=== PATIENT | female | born 1940 | race Caucasian/White ===

== ENCOUNTER → 2017-08-23 09:08 | Outpatient (CLI) | payer MEDICARE, SELFPAY | PROVIDERS: Family Provider Family Medicine; PCP Family Medicine; Visit Provider Family Medicine | DX: E11.9 Type 2 diabetes mellitus without complications (principal) | CPT/HCPCS: 36415; 83036 ==

== ENCOUNTER → 2017-08-29 12:30 | Outpatient (CLI) | payer MEDICARE, SELFPAY ==
--- NOTE | 2017-08-29 12:47 | HPBD_ITS ---
STUDY: DUAL ENERGY X-RAY ABSORPTIOMETRY / DXA REASON FOR EXAM: Female, 76 years old. 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 COMPARISON: None. FINDINGS: Lumbar Spine (L1-L4): g/cm2 (1.178) / T-score (0.1) / Z-score (1.9) Findings are suggestive of normal bone density . Left Femoral Neck: g/cm2 (0.692) / T-score (-2.5) / Z-score (-0.4) consistent with osteoporosis. Right Femoral Neck: g/cm2 (0.672) / T-score (-2.6) / Z-score (-0.6) consistent with osteoporosis. HPBD/Dexa Bone Density Study (HP) IMPRESSION: The patient is considered osteoporotic as outlined below according to World [employer] Organization (WHO) criteria with increased fracture risk. Reference Information: The T-score is the number of standard deviations above or below the standard which is normal for young adults at their peak bone mineral density. The World Health Organization (WHO) interprets the T-scores as follows: Above -1 Normal bone density Between -1 and -2.5 Osteopenia Equal to / or below -2.5 Osteoporosis As a practical clinical guideline, osteopenia may be graded as follows: Mild -1 through -1.5 Moderate -1.6 through -2.0 Severe -2.1 through -2.4 The Z-score is the number of standard deviations above or below age-matched controls. A Z-score of less than -1.5 would be considered abnormal. References: 1. NIH Osteoporosis and Related Bone Diseases http://www.osteo.org 2. International Society for Clinical Densitometry http://www.iscd.org 3. National Osteoporosis Foundation http://www.nof.org Electronically Signed: Nohemy Martinez MD at 10:36 EDT Tel , Service support ,
== END ==
PROVIDERS: Family Provider Family Medicine; PCP Family Medicine; Visit Provider Family Medicine
DX: M81.0 Age-related osteoporosis without current pathological fracture (principal); I48.91 Unspecified atrial fibrillation; I48.92 Unspecified atrial flutter
CPT/HCPCS: 77080

== ENCOUNTER → 2017-09-26 14:03 | Outpatient (CLI) | payer MEDICARE, SELFPAY ==
--- NOTE | 2017-09-26 14:05 | ECHOD_ITS ---
Reason For Study: AFIB/FLUTTER Procedure This was a 2D Doppler, Color Flow transthoracic echocardiogram. The study was technically difficult. Exam performed in department. Left Ventricle Normal LV size. Sigmoid septum. Left ventricular systolic function is normal. The estimated ejection fraction is 60 %. Unable to assess diastolic dysfunction. No regional wall motion abnormalities noted. Right Ventricle Normal RV size. Normal systolic function. Atria The left atrium is severely enlarged. Normal right atrium. No doppler evidence for ASD. Mitral Valve There is moderate mitral annular calcification. Extension of the mitral annular calcification onto the posterior mitral valve leaflet. Mild (1+) mitral valve insufficiency. Tricuspid Valve Normal tricuspid valve. Moderate (2+) tricuspid valve insufficiency. Right ventricular systolic pressure estimated to be 49 mmHg. Aortic Valve Trisinus/trileaflet aortic valve. Mild focal aortic valve calcification. Pulmonic Valve The pulmonic valve is not well visualized. Trivial pulmonic valve insufficiency. Great Vessels Normal sized aortic root. Pericardium/Pleural No pericardial effusion. MMode/2D Measurements & Calculations LVIDd: 3.4 cm IVSd: 1.5 cm Ao root diam: 2.8 cm LVIDs: 2.4 cm LVPWd: 1.2 cm LA dimension: 5.0 cm RVDd: 3.3 cm FS: 29.3 % LAV(MOD-bp): 68.4 ml LA A4 area: 23.8 cm2 RA A4 area: 16.1 cm2 LAV(MOD-bp) Indexed: 34.9 ml/m2 LAV(MOD-sp2): 61.6 ml LAV(MOD-sp4): 77.3 ml Doppler Measurements & Calculations MV E max olivia: 115.1 cm/sec Ao V2 max: 108.5 cm/sec LV V1 max: 80.6 cm/sec Ao max P.7 mmHg LV V1 max P.6 mmHg MR max olivia: 612.6 cm/sec PA V2 max: 72.0 cm/sec PI end-d olivia: 195.8 cm/sec MR max P.2 mmHg TR max olivia: 319.2 cm/sec TR max P.8 mmHg Interpretation Summary The study was technically difficult. Left ventricular systolic function is normal. The estimated ejection fraction is 60 %. Sigmoid septum. The left atrium is severely enlarged. There is moderate mitral annular calcification. Extension of the mitral annular calcification onto the posterior mitral valve leaflet. Mild (1+) mitral valve insufficiency. Moderate (2+) tricuspid valve insufficiency. Mild focal aortic valve calcification. Trivial pulmonic valve insufficiency. Right ventricular systolic pressure estimated to be 49 mmHg. Unable to assess diastolic dysfunction. Ordering Physician: Victorina Post Referring Physician: Ayden Watts Performed By: Ana Lilia Boyce RDCS, RVT
[2017-09-26 15:15] LABS: International Normalized Ratio 2.5; Prothrombin Time (Protime)PT. 27.2 SECONDS (11.7-14.9)
== END ==
PROVIDERS: Family Provider Family Medicine; PCP Family Medicine; Visit Provider Physician Assistant Medical
DX: I48.91 Unspecified atrial fibrillation (principal); I48.92 Unspecified atrial flutter; I25.10 Atherosclerotic heart disease of native coronary artery without angina pectoris; I10 Essential (primary) hypertension; I25.2 Old myocardial infarction
CPT/HCPCS: 36415; 85610; 93306

== ENCOUNTER → 2017-10-03 08:38 | Outpatient (CLI) | payer MEDICARE, SELFPAY ==
[2017-10-03 10:04] LABS: International Normalized Ratio 3.3; Prothrombin Time (Protime)PT. 33.6 SECONDS (11.7-14.9)
== END ==
PROVIDERS: Family Provider Family Medicine; PCP Family Medicine; Visit Provider Physician Assistant Medical
DX: I48.91 Unspecified atrial fibrillation (principal)
CPT/HCPCS: 36415; 85610

== ENCOUNTER → 2017-10-10 09:05 | Outpatient (CLI) | payer MEDICARE, SELFPAY ==
[2017-10-10 09:59] LABS: International Normalized Ratio 2.7; Prothrombin Time (Protime)PT. 28.4 SECONDS (11.7-14.9)
== END ==
PROVIDERS: Internal Medicine Cardiovascular Disease; Family Provider Family Medicine; PCP Family Medicine; Visit Provider Physician Assistant Medical
DX: I48.91 Unspecified atrial fibrillation (principal); I48.92 Unspecified atrial flutter
CPT/HCPCS: 36415; 85610

== ENCOUNTER → 2017-10-24 08:19 | Outpatient (CLI) | payer MEDICARE, SELFPAY ==
[2017-10-24 09:27] LABS: Anion Gap 7 (5-15); BUN 18 mg/dL (7-18); BUN/Creat Ratio 17.1 RATIO (10-20); Calcium,Total 9.2 mg/dL (8.5-10.1); Chloride 99 mmol/L (98-107); Creatinine, Serum 1.05 mg/dL (0.55-1.02); EST Glomerular Filtration Rate 54 mL/min (>60); Est Glom Filt Rate - Afr Amer 65 mL/min (>60); Glucose 174 mg/dL (74-106); Potassium 4.2 mmol/L (3.5-5.1); Sodium Level 138 mmol/L (136-145)
== END ==
PROVIDERS: Nurse Practitioner Family; Family Provider Family Medicine; PCP Family Medicine; Visit Provider Physician Assistant Medical
DX: I10 Essential (primary) hypertension (principal)
CPT/HCPCS: 36415; 80048

== ENCOUNTER 2017-10-25 15:37 | Outpatient (RCR) | payer MEDICARE, SELFPAY ==
[2017-10-25 16:39] LABS: International Normalized Ratio 1.9; Prothrombin Time (Protime)PT. 21.7 SECONDS (11.7-14.9)
== END 2017-10-25 16:00 | disposition home or self-care (01) ==
LOC: LAB 15:37
PROVIDERS: Family Provider Family Medicine; PCP Family Medicine; Visit Provider Physician Assistant Medical
DX: I48.92 Unspecified atrial flutter (principal)
CPT/HCPCS: 36415; 85610

== ENCOUNTER → 2017-11-26 11:00 | Outpatient (CLI) | payer MEDICARE, SELFPAY ==
[2017-11-26 12:43] LABS: AST(SGOT) 15 U/L (15-37); Alanine Aminotransfer ALT/SGPT 24 U/L (13-56); Albumin, Serum 3.4 g/dL (3.2-5.0); Alkaline Phosphatase 122 U/L (45-117); Anion Gap 7 (5-15); BUN 18 mg/dL (7-18); BUN/Creat Ratio 17.3 RATIO (10-20); Chloride 101 mmol/L (98-107); Creatinine, Serum 1.04 mg/dL (0.55-1.02); EST Glomerular Filtration Rate 55 mL/min (>60); Est Glom Filt Rate - Afr Amer 66 mL/min (>60); Globulin 3.5 g/dL (2.2-4.2); Glucose 142 mg/dL (74-106); Potassium 4.1 mmol/L (3.5-5.1); Protein, Total 6.9 g/dL (6.4-8.2); Sodium Level 140 mmol/L (136-145)
[2017-11-26 13:10] LABS: Hemoglobin A1c 8.8 % (4.2-6.3)
== END ==
PROVIDERS: Family Provider Family Medicine; PCP Family Medicine; Visit Provider Family Medicine
DX: E11.9 Type 2 diabetes mellitus without complications (principal); I10 Essential (primary) hypertension
CPT/HCPCS: 80053; 83036

== ENCOUNTER 2017-11-28 09:05 | Outpatient (RCR) | payer MEDICARE, SELFPAY ==
--- NOTE | 2017-11-14 08:19 | DT_ITS ---
This patient was seen during an EMR downtime November 11, 2017 - November 18, 2017. This patient may have a combination of paper and electronic documentation or all paper documentation. All documentation is viewable within the e-chart portion of [employer] for each patient visit.
[2017-11-19 04:16] LABS: International Normalized Ratio 2.5; Prothrombin Time (Protime)PT. 27.5 SECONDS (11.7-14.9)
[2017-11-28 11:08] LABS: International Normalized Ratio 2.8; Prothrombin Time (Protime)PT. 29.7 SECONDS (11.7-14.9)
== END 2017-11-28 10:00 | disposition home or self-care (01) ==
LOC: LAB 09:05
PROVIDERS: Internal Medicine Cardiovascular Disease; Family Provider Family Medicine; PCP Family Medicine; Visit Provider Physician Assistant Medical
DX: I48.91 Unspecified atrial fibrillation (principal); I48.92 Unspecified atrial flutter
CPT/HCPCS: 36415; 85610

== ENCOUNTER 2017-12-19 08:37 | Outpatient (RCR) | payer MEDICARE, SELFPAY ==
[2017-12-19 09:35] LABS: International Normalized Ratio 2.4; Prothrombin Time (Protime)PT. 26.6 SECONDS (11.7-14.9)
== END 2018-01-09 09:08 | disposition home or self-care (01) ==
LOC: LAB 08:37
PROVIDERS: Family Provider Family Medicine; PCP Family Medicine; Visit Provider Physician Assistant Medical
DX: I48.91 Unspecified atrial fibrillation (principal); I48.92 Unspecified atrial flutter
CPT/HCPCS: 36415; 85610

== ENCOUNTER 2018-01-30 08:39 | Outpatient (RCR) | payer MEDICARE, SELFPAY ==
[2018-01-09 09:51] LABS: International Normalized Ratio 2.9; Prothrombin Time (Protime)PT. 30.8 SECONDS (11.7-14.9)
[2018-01-30 10:00] LABS: International Normalized Ratio 3.4; Prothrombin Time (Protime)PT. 34.9 SECONDS (11.7-14.9)
== END 2018-01-30 10:00 | disposition home or self-care (01) ==
LOC: LAB 08:39
PROVIDERS: Family Provider Family Medicine; PCP Family Medicine; Visit Provider Physician Assistant Medical
DX: I48.91 Unspecified atrial fibrillation (principal); I48.92 Unspecified atrial flutter
CPT/HCPCS: 36415; 85610

== ENCOUNTER 2018-02-27 09:13 | Outpatient (RCR) | payer MEDICARE, SELFPAY ==
[2018-02-13 09:58] LABS: International Normalized Ratio 2.8; Prothrombin Time (Protime)PT. 29.3 SECONDS (11.7-14.9)
[2018-02-27 10:00] LABS: International Normalized Ratio 2.6
[2018-02-27 10:04] LABS: Hemoglobin A1c 8.9 % (4.2-6.3)
[2018-02-27 10:12] LABS: Cholesterol 223 mg/dL (200); High Density Lipoprotein 35 mg/dL; Triglycerides 336 mg/dL; Very Low Density Lipoprotein 67 mg/dL (5-40)
== END 2018-02-27 10:00 | disposition home or self-care (01) ==
LOC: LAB 09:13
PROVIDERS: Family Provider Family Medicine; PCP Family Medicine; Visit Provider Physician Assistant Medical
DX: I48.91 Unspecified atrial fibrillation (principal); I48.92 Unspecified atrial flutter; I21.4 Non-ST elevation (NSTEMI) myocardial infarction; E11.9 Type 2 diabetes mellitus without complications
CPT/HCPCS: 36415; 80061; 83036; 85610

== ENCOUNTER 2018-04-03 08:56 | Outpatient (RCR) | payer MEDICARE, SELFPAY ==
[2018-03-20 09:49] LABS: International Normalized Ratio 3.3; Prothrombin Time (Protime)PT. 34.1 SECONDS (11.7-14.9)
[2018-04-03 09:56] LABS: International Normalized Ratio 2.3; Prothrombin Time (Protime)PT. 25.8 SECONDS (11.7-14.9)
== END 2018-04-03 10:00 | disposition home or self-care (01) ==
LOC: LAB 08:56
PROVIDERS: Family Provider Family Medicine; PCP Family Medicine; Referring Provider Physician Assistant Medical; Visit Provider Physician Assistant Medical
DX: I48.91 Unspecified atrial fibrillation (principal); I48.92 Unspecified atrial flutter
CPT/HCPCS: 36415; 85610

== ENCOUNTER 2018-04-24 09:23 | Outpatient (RCR) | payer MEDICARE, SELFPAY ==
[2018-04-24 11:14] LABS: International Normalized Ratio 2.4; Prothrombin Time (Protime)PT. 26.6 SECONDS (11.7-14.9)
== END 2018-05-09 12:15 | disposition home or self-care (01) ==
LOC: LAB 09:23
PROVIDERS: Family Provider Family Medicine; PCP Family Medicine; Referring Provider Physician Assistant Medical; Visit Provider Physician Assistant Medical
DX: I48.91 Unspecified atrial fibrillation (principal); I48.92 Unspecified atrial flutter
CPT/HCPCS: 36415; 85610

== ENCOUNTER 2018-06-05 08:31 | Outpatient (RCR) | payer MEDICARE, SELFPAY ==
[2018-02-26 10:29] VITALS: BMI 39.6
[2018-05-15 09:52] LABS: Prothrombin Time (Protime)PT. 22.3 SECONDS (11.7-14.9)
[2018-06-05 10:02] LABS: Hemoglobin A1c 9.6 % (4.2-6.3)
[2018-06-05 10:04] LABS: International Normalized Ratio 2.5; Prothrombin Time (Protime)PT. 27.1 SECONDS (11.7-14.9)
== END 2018-06-05 09:00 | disposition home or self-care (01) ==
LOC: LAB 08:31
PROVIDERS: Family Provider Family Medicine; PCP Family Medicine; Referring Provider Physician Assistant Medical; Visit Provider Physician Assistant Medical
DX: I48.91 Unspecified atrial fibrillation (principal); I48.92 Unspecified atrial flutter; E11.9 Type 2 diabetes mellitus without complications
CPT/HCPCS: 36415; 83036; 85610

== ENCOUNTER 2018-08-07 08:57 | Outpatient (RCR) | payer MEDICARE, SELFPAY ==
[2018-05-28 08:50] VITALS: BMI 39.4
[2018-07-11 16:06] LABS: International Normalized Ratio 1.7; Prothrombin Time (Protime)PT. 19.8 SECONDS (11.7-14.9)
[2018-07-24 11:07] LABS: International Normalized Ratio 2.4; Prothrombin Time (Protime)PT. 26.4 SECONDS (11.7-14.9)
[2018-08-07 09:27] LABS: International Normalized Ratio 2.4; Prothrombin Time (Protime)PT. 26.2 SECONDS (11.7-14.9)
== END 2018-08-07 14:51 | disposition home or self-care (01) ==
LOC: LAB 08:57
PROVIDERS: Family Provider Family Medicine; PCP Family Medicine; Referring Provider Physician Assistant Medical; Visit Provider Physician Assistant Medical
DX: I48.91 Unspecified atrial fibrillation (principal); I48.92 Unspecified atrial flutter
CPT/HCPCS: 36415; 85610

== ENCOUNTER 2018-08-28 08:51 | Outpatient (RCR) | payer MEDICARE, SELFPAY ==
[2018-05-28 08:50] VITALS: BMI 39.4
[2018-08-27 13:06] VITALS: BMI 39.4
[2018-08-28 10:37] LABS: International Normalized Ratio 2.5; Prothrombin Time (Protime)PT. 26.9 SECONDS (11.7-14.9)
== END 2018-08-28 09:51 | disposition home or self-care (01) ==
LOC: LAB 08:51
PROVIDERS: Family Provider Family Medicine; PCP Family Medicine; Referring Provider Physician Assistant Medical; Visit Provider Physician Assistant Medical
DX: I48.91 Unspecified atrial fibrillation (principal); I48.92 Unspecified atrial flutter
CPT/HCPCS: 36415; 85610

== ENCOUNTER 2018-10-02 08:58 | Outpatient (RCR) | payer MEDICARE, SELFPAY ==
[2018-08-27 13:06] VITALS: BMI 39.4
[2018-10-02 10:15] LABS: International Normalized Ratio 2.6; Prothrombin Time (Protime)PT. 27.8 SECONDS (11.7-14.9)
== END 2018-10-07 16:00 | disposition home or self-care (01) ==
LOC: LAB 08:58
PROVIDERS: Family Provider Family Medicine; PCP Family Medicine; Referring Provider Physician Assistant Medical; Visit Provider Physician Assistant Medical
DX: I48.91 Unspecified atrial fibrillation (principal); I48.92 Unspecified atrial flutter; Z79.01 Long term (current) use of anticoagulants
CPT/HCPCS: 36415; 85610

== ENCOUNTER 2018-10-30 08:54 | Outpatient (RCR) | payer MEDICARE, SELFPAY ==
[2018-08-27 13:06] VITALS: BMI 39.4
[2018-10-30 10:21] LABS: International Normalized Ratio 2.5; Prothrombin Time (Protime)PT. 27.3 SECONDS (11.7-14.9)
== END 2018-10-30 09:54 | disposition home or self-care (01) ==
LOC: LAB 08:54
PROVIDERS: Family Provider Family Medicine; PCP Family Medicine; Referring Provider Physician Assistant Medical; Visit Provider Physician Assistant Medical
DX: I48.91 Unspecified atrial fibrillation (principal); I48.92 Unspecified atrial flutter; Z79.01 Long term (current) use of anticoagulants
CPT/HCPCS: 36415; 85610

== ENCOUNTER 2018-11-27 08:13 | Outpatient (RCR) | payer MEDICARE, SELFPAY ==
[2018-08-27 13:06] VITALS: BMI 39.4
[2018-11-26 11:13] VITALS: BMI 39.1
[2018-11-27 08:59] LABS: International Normalized Ratio 2.1; Prothrombin Time (Protime)PT. 23.5 SECONDS (11.7-14.9)
[2018-11-27 09:36] LABS: AST(SGOT) 19 U/L (15-37); Alanine Aminotransfer ALT/SGPT 25 U/L (13-56); Albumin, Serum 3.4 g/dL (3.2-5.0); Alkaline Phosphatase 107 U/L (45-117); Bilirubin, Direct 0.09 mg/dL (0.00-0.30); Cholesterol 133 mg/dL (200); Globulin 3.1 g/dL (2.2-4.2); High Density Lipoprotein 36 mg/dL; Protein, Total 6.5 g/dL (6.4-8.2); Triglycerides 181 mg/dL; Very Low Density Lipoprotein 36 mg/dL (5-40)
== END 2018-12-07 12:00 | disposition home or self-care (01) ==
LOC: LAB 08:13
PROVIDERS: Internal Medicine Cardiovascular Disease; Family Provider Family Medicine; PCP Family Medicine; Referring Provider Physician Assistant Medical; Visit Provider Physician Assistant Medical
DX: I25.10 Atherosclerotic heart disease of native coronary artery without angina pectoris (principal); E78.00 Pure hypercholesterolemia, unspecified; I48.91 Unspecified atrial fibrillation; I48.92 Unspecified atrial flutter; Z79.01 Long term (current) use of anticoagulants
CPT/HCPCS: 36415; 80061; 80076; 85610

== ENCOUNTER 2018-12-25 08:38 | Outpatient (RCR) | payer MEDICARE, SELFPAY ==
[2018-11-26 11:13] VITALS: BMI 39.1
[2018-12-25 10:02] LABS: International Normalized Ratio 2.3; Prothrombin Time (Protime)PT. 25.5 SECONDS (11.7-14.9)
== END 2019-01-07 16:22 | disposition home or self-care (01) ==
LOC: LAB 08:38
PROVIDERS: Family Provider Family Medicine; PCP Family Medicine; Referring Provider Internal Medicine Cardiovascular Disease; Visit Provider Internal Medicine Cardiovascular Disease
DX: I48.91 Unspecified atrial fibrillation (principal); I48.92 Unspecified atrial flutter; Z79.01 Long term (current) use of anticoagulants
CPT/HCPCS: 36415; 85610

== ENCOUNTER 2019-02-05 08:46 | Outpatient (RCR) | payer MEDICARE, SELFPAY ==
[2018-11-26 11:13] VITALS: BMI 39.1
[2019-01-22 09:34] LABS: International Normalized Ratio 3.2; Prothrombin Time (Protime)PT. 32.8 SECONDS (11.7-14.9)
[2019-02-05 09:24] LABS: International Normalized Ratio 1.8; Prothrombin Time (Protime)PT. 20.8 SECONDS (11.7-14.9)
== END 2019-02-05 09:46 | disposition home or self-care (01) ==
LOC: LAB 08:46
PROVIDERS: Family Provider Family Medicine; PCP Family Medicine; Referring Provider Internal Medicine Cardiovascular Disease; Visit Provider Internal Medicine Cardiovascular Disease
DX: I48.91 Unspecified atrial fibrillation (principal); I48.92 Unspecified atrial flutter; Z79.01 Long term (current) use of anticoagulants
CPT/HCPCS: 36415; 85610

== ENCOUNTER → 2019-02-25 11:11 | Outpatient (CLI) | payer MEDICARE, SELFPAY ==
[2019-02-25 10:53] VITALS: BMI 38.7
[2019-02-25 13:00] LABS: AST(SGOT) 16 U/L (15-37); Alanine Aminotransfer ALT/SGPT 22 U/L (13-56); Albumin, Serum 3.5 g/dL (3.2-5.0); Alkaline Phosphatase 116 U/L (45-117); Anion Gap 5 (5-15); BUN 12 mg/dL (7-18); BUN/Creat Ratio 12.8 RATIO (10-20); Calcium,Total 8.6 mg/dL (8.5-10.1); Chloride 100 mmol/L (98-107); Cholesterol 162 mg/dL (200); Creatinine, Serum 0.94 mg/dL (0.55-1.02); EST Glomerular Filtration Rate 61 mL/min (>60); Est Glom Filt Rate - Afr Amer 74 mL/min (>60); Globulin 3.4 g/dL (2.2-4.2); Glucose 124 mg/dL (74-106); High Density Lipoprotein 40 mg/dL; Potassium 4.1 mmol/L (3.5-5.1); Protein, Total 6.9 g/dL (6.4-8.2); Sodium Level 135 mmol/L (136-145); Triglycerides 248 mg/dL; Very Low Density Lipoprotein 50 mg/dL (5-40)
== END ==
PROVIDERS: Family Provider Family Medicine; PCP Family Medicine; Visit Provider Family Medicine
DX: E11.9 Type 2 diabetes mellitus without complications (principal); E78.00 Pure hypercholesterolemia, unspecified
CPT/HCPCS: 36415; 80053; 80061

== ENCOUNTER 2019-03-05 08:28 | Outpatient (RCR) | payer MEDICARE, SELFPAY ==
[2018-11-26 11:13] VITALS: BMI 39.1
[2019-02-11 13:01] VITALS: BMI 39.1
[2019-02-19 10:00] LABS: International Normalized Ratio 2.5; Prothrombin Time (Protime)PT. 26.8 SECONDS (11.7-14.9)
[2019-03-05 09:35] LABS: International Normalized Ratio 2.4; Prothrombin Time (Protime)PT. 26.3 SECONDS (11.7-14.9)
== END 2019-03-05 10:00 | disposition home or self-care (01) ==
LOC: LAB 08:28
PROVIDERS: Family Provider Family Medicine; PCP Family Medicine; Referring Provider Internal Medicine Cardiovascular Disease; Visit Provider Internal Medicine Cardiovascular Disease
DX: I48.91 Unspecified atrial fibrillation (principal); I48.92 Unspecified atrial flutter; Z79.01 Long term (current) use of anticoagulants
CPT/HCPCS: 36415; 85610

== ENCOUNTER 2019-03-19 08:51 | Outpatient (RCR) | payer MEDICARE, SELFPAY ==
[2019-02-25 10:53] VITALS: BMI 38.7
[2019-03-19 09:19] LABS: International Normalized Ratio 2.5; Prothrombin Time (Protime)PT. 26.8 SECONDS (11.7-14.9)
== END 2019-03-19 18:00 | disposition home or self-care (01) ==
LOC: LAB 08:51
PROVIDERS: Family Provider Family Medicine; PCP Family Medicine; Referring Provider Internal Medicine Cardiovascular Disease; Visit Provider Internal Medicine Cardiovascular Disease
DX: I48.91 Unspecified atrial fibrillation (principal); I48.92 Unspecified atrial flutter; Z79.01 Long term (current) use of anticoagulants
CPT/HCPCS: 36415; 85610

== ENCOUNTER 2019-04-16 08:40 | Outpatient (RCR) | payer MEDICARE, SELFPAY ==
[2019-02-25 10:53] VITALS: BMI 38.7
[2019-04-16 09:52] LABS: International Normalized Ratio 2.4; Prothrombin Time (Protime)PT. 26.5 SECONDS (11.7-14.9)
== END 2019-04-16 18:00 | disposition home or self-care (01) ==
LOC: LAB 08:40
PROVIDERS: Family Provider Family Medicine; PCP Family Medicine; Referring Provider Internal Medicine Cardiovascular Disease; Visit Provider Internal Medicine Cardiovascular Disease
DX: I48.91 Unspecified atrial fibrillation (principal); I48.92 Unspecified atrial flutter; Z79.01 Long term (current) use of anticoagulants
CPT/HCPCS: 36415; 85610

== ENCOUNTER 2019-05-14 09:17 | Outpatient (RCR) | payer MEDICARE, SELFPAY ==
[2019-02-25 10:53] VITALS: BMI 38.7
[2019-05-14 10:34] LABS: International Normalized Ratio 2.3; Prothrombin Time (Protime)PT. 25.6 SECONDS (11.7-14.9)
== END 2019-05-14 18:00 | disposition home or self-care (01) ==
LOC: LAB 09:17
PROVIDERS: Family Provider Family Medicine; PCP Family Medicine; Referring Provider Internal Medicine Cardiovascular Disease; Visit Provider Internal Medicine Cardiovascular Disease
DX: I48.91 Unspecified atrial fibrillation (principal); I48.92 Unspecified atrial flutter; Z79.01 Long term (current) use of anticoagulants
CPT/HCPCS: 36415; 85610

== ENCOUNTER → 2019-05-20 07:54 | Outpatient (CLI) | payer MEDICARE, SELFPAY ==
[2019-02-25 10:53] VITALS: BMI 38.7
[2019-05-20 09:16] LABS: AST(SGOT) 15 U/L (15-37); Alanine Aminotransfer ALT/SGPT 24 U/L (13-56); Albumin, Serum 3.5 g/dL (3.2-5.0); Alkaline Phosphatase 141 U/L (45-117); Bilirubin, Direct 0.11 mg/dL (0.00-0.30); Cholesterol 193 mg/dL (200); Globulin 3.4 g/dL (2.2-4.2); High Density Lipoprotein 40 mg/dL; Protein, Total 6.9 g/dL (6.4-8.2); Triglycerides 298 mg/dL; Very Low Density Lipoprotein 60 mg/dL (5-40)
== END ==
PROVIDERS: Family Provider Family Medicine; PCP Family Medicine; Referring Provider Nurse Practitioner Family; Visit Provider Nurse Practitioner Family
DX: E78.00 Pure hypercholesterolemia, unspecified (principal)
CPT/HCPCS: 36415; 80061; 80076

== ENCOUNTER → 2019-06-26 05:36 | Outpatient (CLI) | payer MEDICARE, SELFPAY ==
[2019-06-16 09:19] VITALS: BMI 38.9
--- NOTE | 2019-06-26 11:16 | STRESSREP ---
Stress Test Report Date: 06-26-2019 Procedure: Pharmacologic stress nuclear imaging study Indications: CAD; atrial fibrillation Consent: Per the patient Procedure: The patient underwent pharmacologic (Regadenoson) evaluation with a peak heart rate of 126 beats per minute (89 %predicted maximal heart rate) and a peak blood pressure of 156/90 mmHg. The baseline ECG demonstrated atrial fibrillation; right bundle branch block pattern. The peak pharmacologic ECG demonstrated no obvious ECG changes. There were no cardiac dysrhythmias pretest, during pharmacologic infusion, or recovery. There was no complaint of chest discomfort during pharmacologic infusion or recovery. The examination was discontinued secondary to completion of protocol. Impression: 1. Pharmacologic (Regadenoson) evaluation 2. Peak pharmacologic ECG with no obvious ECG changes. 3. There were no cardiac dysrhythmias pretest, during pharmacologic infusion, or recovery. 4. Nuclear images pending Myocardial perfusion imaging study: Technique: The patient was injected with 14.5 millicuries of technetium 99m Cardiolite and subsequently rest SPECT Cardiolite nuclear imaging was obtained in the horizontal long, vertical long, and short axis views. The patient underwent pharmacologic (Regadenoson) evaluation with a peak heart rate of 126 beats per minute (89 % percent predicted maximal heart rate) and a peak blood pressure of 156/90 mmHg. The patient was injected with 44.7 millicuries of technetium 99m Cardiolite and subsequently stress SPECT Cardiolite nuclear imaging was obtained in the horizontal long, vertical long, and short axis views. A gated Cardiolite study at peak stress was obtained. Interpretation: Rest and stress SPECT Cardiolite nuclear imaging status post realignment, normalization, and attenuation correction demonstrate relative uniform tracer uptake and myocardial perfusion appearing within normal limits. There is end systolic thickening and brightening. The gated Cardiolite study demonstrates myocardial thickening and inward wall motion. The reported LVEF is 79 %. Impression: 1. Rest and stress SPECT Cardiolite nuclear imaging demonstrate relative uniform tracer uptake and myocardial perfusion appearing within normal limits. 2. The gated Cardiolite study reports an LVEF of 79 %. This note was generated with [employer] software. It may contain incorrect words, spelling, and punctuation that were not noted in checking the note before signing.
== END ==
PROVIDERS: Family Provider Family Medicine; PCP Family Medicine; Referring Provider Nurse Practitioner Family; Visit Provider Nurse Practitioner Family
DX: I25.10 Atherosclerotic heart disease of native coronary artery without angina pectoris (principal); R07.9 Chest pain, unspecified; E11.9 Type 2 diabetes mellitus without complications; I10 Essential (primary) hypertension; E78.00 Pure hypercholesterolemia, unspecified
CPT/HCPCS: 78452; 93017; A9500; A4216; J2785

== ENCOUNTER 2019-07-02 08:47 | Outpatient (RCR) | payer MEDICARE, SELFPAY ==
[2019-05-27 11:22] VITALS: BMI 38.7
[2019-06-16 09:49] LABS: International Normalized Ratio 1.6; Prothrombin Time (Protime)PT. 19.2 SECONDS (11.7-14.9)
[2019-07-02 10:00] LABS: International Normalized Ratio 1.7
== END 2019-07-02 18:00 | disposition home or self-care (01) ==
LOC: LAB 08:47
PROVIDERS: Family Provider Family Medicine; PCP Family Medicine; Referring Provider Internal Medicine Cardiovascular Disease; Visit Provider Internal Medicine Cardiovascular Disease
DX: I48.91 Unspecified atrial fibrillation (principal); I48.92 Unspecified atrial flutter; Z79.01 Long term (current) use of anticoagulants
CPT/HCPCS: 36415; 85610

== ENCOUNTER 2019-08-06 09:46 | Outpatient (RCR) | payer MEDICARE, SELFPAY ==
[2019-06-16 09:19] VITALS: BMI 38.9
[2019-07-16 09:42] LABS: International Normalized Ratio 2.4; Prothrombin Time (Protime)PT. 25.8 SECONDS (11.7-14.9)
[2019-08-06 10:37] LABS: International Normalized Ratio 2.4; Prothrombin Time (Protime)PT. 25.9 SECONDS (11.7-14.9)
== END 2019-08-06 18:00 | disposition home or self-care (01) ==
LOC: LAB 09:46
PROVIDERS: Family Provider Family Medicine; PCP Family Medicine; Referring Provider Internal Medicine Cardiovascular Disease; Visit Provider Internal Medicine Cardiovascular Disease
DX: I48.91 Unspecified atrial fibrillation (principal); I48.92 Unspecified atrial flutter; Z79.01 Long term (current) use of anticoagulants
CPT/HCPCS: 36415; 85610

== ENCOUNTER 2019-08-26 08:39 | Outpatient (RCR) | payer MEDICARE, SELFPAY ==
[2019-06-16 09:19] VITALS: BMI 38.9
[2019-08-14 11:41] VITALS: BMI 38.9
[2019-08-21 10:43] LABS: Prothrombin Time (Protime)PT. 31.1 SECONDS (11.7-14.9)
[2019-08-26 10:47] LABS: International Normalized Ratio 2.2; Prothrombin Time (Protime)PT. 24.8 SECONDS (11.7-14.9)
== END 2019-08-26 18:00 | disposition home or self-care (01) ==
LOC: LAB 08:39
PROVIDERS: Family Provider Family Medicine; PCP Family Medicine; Referring Provider Internal Medicine Cardiovascular Disease; Visit Provider Internal Medicine Cardiovascular Disease
DX: I48.91 Unspecified atrial fibrillation (principal); I48.92 Unspecified atrial flutter; Z79.01 Long term (current) use of anticoagulants
CPT/HCPCS: 36415; 85610

== ENCOUNTER 2019-10-01 08:57 | Outpatient (RCR) | payer MEDICARE, SELFPAY ==
[2019-08-26 10:03] VITALS: BMI 38.9
[2019-09-17 10:01] LABS: International Normalized Ratio 1.7; Prothrombin Time (Protime)PT. 19.6 SECONDS (11.7-14.9)
[2019-10-01 10:41] LABS: International Normalized Ratio 2.7
== END 2019-10-08 18:00 | disposition home or self-care (01) ==
LOC: LAB 08:57
PROVIDERS: Family Provider Family Medicine; PCP Family Medicine; Referring Provider Internal Medicine Cardiovascular Disease; Visit Provider Internal Medicine Cardiovascular Disease
DX: I48.91 Unspecified atrial fibrillation (principal); I48.92 Unspecified atrial flutter; Z79.01 Long term (current) use of anticoagulants
CPT/HCPCS: 36415; 85610

== ENCOUNTER 2019-10-15 08:16 | Outpatient (RCR) | payer MEDICARE, SELFPAY ==
[2019-09-18 08:29] VITALS: BMI 38.9
[2019-10-15 09:32] LABS: International Normalized Ratio 2.6; Prothrombin Time (Protime)PT. 27.3 SECONDS (11.7-14.9)
== END 2019-10-15 18:00 | disposition home or self-care (01) ==
LOC: LAB 08:16
PROVIDERS: Family Provider Family Medicine; PCP Family Medicine; Referring Provider Internal Medicine Cardiovascular Disease; Visit Provider Internal Medicine Cardiovascular Disease
DX: I48.91 Unspecified atrial fibrillation (principal); I48.92 Unspecified atrial flutter; Z79.01 Long term (current) use of anticoagulants
CPT/HCPCS: 36415; 85610

== ENCOUNTER 2019-11-12 08:43 | Outpatient (RCR) | payer MEDICARE, SELFPAY ==
[2019-09-18 08:29] VITALS: BMI 38.9
[2019-11-12 09:14] LABS: International Normalized Ratio 2.8
== END 2019-11-12 18:00 | disposition home or self-care (01) ==
LOC: LAB 08:43
PROVIDERS: Family Provider Family Medicine; PCP Family Medicine; Referring Provider Internal Medicine Cardiovascular Disease; Visit Provider Internal Medicine Cardiovascular Disease
DX: I48.91 Unspecified atrial fibrillation (principal); I48.92 Unspecified atrial flutter; Z79.01 Long term (current) use of anticoagulants
CPT/HCPCS: 36415; 85610

== ENCOUNTER → 2019-12-03 09:01 | Outpatient (CLI) | payer MEDICARE, SELFPAY ==
[2019-11-25 09:24] VITALS: BMI 38.9
== END ==
PROVIDERS: PCP Family Medicine; Referring Provider Internal Medicine Cardiovascular Disease; Visit Provider Internal Medicine Cardiovascular Disease
DX: I48.91 Unspecified atrial fibrillation (principal); I48.92 Unspecified atrial flutter; Z79.01 Long term (current) use of anticoagulants
CPT/HCPCS: 93225; 93226

== ENCOUNTER → 2019-12-21 08:40 | Outpatient (CLI) | payer MEDICARE, SELFPAY ==
[2019-11-25 09:24] VITALS: BMI 38.9
[2019-12-21 09:47] LABS: Anion Gap 5 (5-15); BUN 20 mg/dL (7-18); BUN/Creat Ratio 20.3 RATIO (10-20); Calcium,Total 8.7 mg/dL (8.5-10.1); Chloride 107 mmol/L (98-107); Creatinine, Serum 0.99 mg/dL (0.55-1.02); EST Glomerular Filtration Rate 58 mL/min (>60); Est Glom Filt Rate - Afr Amer 70 mL/min (>60); Glucose 169 mg/dL (74-106); Potassium 4.5 mmol/L (3.5-5.1); Sodium Level 140 mmol/L (136-145)
== END ==
PROVIDERS: PCP Family Medicine; Referring Provider Internal Medicine Cardiovascular Disease; Visit Provider Internal Medicine Cardiovascular Disease
DX: I25.10 Atherosclerotic heart disease of native coronary artery without angina pectoris (principal); I48.91 Unspecified atrial fibrillation; I48.92 Unspecified atrial flutter
CPT/HCPCS: 36415; 80048

== ENCOUNTER 2019-12-31 09:00 | Outpatient (RCR) | payer MEDICARE, SELFPAY ==
[2019-11-25 09:24] VITALS: BMI 38.9
[2019-12-10 09:53] LABS: International Normalized Ratio 1.6; Prothrombin Time (Protime)PT. 18.3 SECONDS (11.7-14.9)
[2019-12-10 10:24] LABS: AST(SGOT) 21 U/L (15-37); Alanine Aminotransfer ALT/SGPT 24 U/L (13-56); Albumin, Serum 3.4 g/dL (3.2-5.0); Alkaline Phosphatase 93 U/L (45-117); Cholesterol 175 mg/dL (200); Globulin 3.1 g/dL (2.2-4.2); High Density Lipoprotein 37 mg/dL; Protein, Total 6.5 g/dL (6.4-8.2); Triglycerides 212 mg/dL; Very Low Density Lipoprotein 42 mg/dL (5-40)
[2019-12-31 09:50] LABS: International Normalized Ratio 2.1; Prothrombin Time (Protime)PT. 23.3 SECONDS (11.7-14.9)
== END 2019-12-31 18:00 | disposition home or self-care (01) ==
LOC: LAB 09:00
PROVIDERS: Nurse Practitioner Family; Family Provider Family Medicine; PCP Family Medicine; Referring Provider Internal Medicine Cardiovascular Disease; Visit Provider Internal Medicine Cardiovascular Disease
DX: I48.91 Unspecified atrial fibrillation (principal); I48.92 Unspecified atrial flutter; Z79.01 Long term (current) use of anticoagulants; E78.00 Pure hypercholesterolemia, unspecified
CPT/HCPCS: 36415; 80061; 80076; 85610

== ENCOUNTER 2020-01-28 09:21 | Outpatient (RCR) | payer MEDICARE, SELFPAY ==
[2019-11-25 09:24] VITALS: BMI 38.9
[2020-01-28 10:09] LABS: International Normalized Ratio 2.4; Prothrombin Time (Protime)PT. 25.4 SECONDS (11.7-14.9)
== END 2020-01-28 18:00 | disposition home or self-care (01) ==
LOC: LAB 09:21
PROVIDERS: Family Provider Family Medicine; PCP Family Medicine; Referring Provider Internal Medicine Cardiovascular Disease; Visit Provider Internal Medicine Cardiovascular Disease
DX: I48.91 Unspecified atrial fibrillation (principal); I48.92 Unspecified atrial flutter; Z79.01 Long term (current) use of anticoagulants
CPT/HCPCS: 36415; 85610

== ENCOUNTER 2020-03-04 08:35 | Outpatient (RCR) | payer MEDICARE, SELFPAY ==
[2019-11-25 09:24] VITALS: BMI 38.9
[2020-02-24 14:35] VITALS: BMI 38.6
[2020-03-04 09:12] LABS: International Normalized Ratio 3.2; Prothrombin Time (Protime)PT. 32.1 SECONDS (11.7-14.9)
== END 2020-03-04 18:00 ==
LOC: LAB 08:35
PROVIDERS: Family Provider Family Medicine; PCP Family Medicine; Referring Provider Internal Medicine Cardiovascular Disease; Visit Provider Internal Medicine Cardiovascular Disease
DX: I48.91 Unspecified atrial fibrillation (principal); I48.92 Unspecified atrial flutter; Z79.01 Long term (current) use of anticoagulants
CPT/HCPCS: 36415; 85610

== ENCOUNTER → 2020-03-04 12:14 | Outpatient (CLI) | payer MEDICARE, SELFPAY ==
[2020-02-24 14:35] VITALS: BMI 38.6
--- NOTE | 2020-03-04 12:15 | ECHOD_ITS ---
Reason For Study: Afib, Aflutter Procedure This was a 2D Doppler, Color Flow transthoracic echocardiogram. The study was technically difficult. Exam performed in department. Left Ventricle Normal LV size. Left ventricular systolic function is normal. The estimated ejection fraction is 55 %. Unable to assess diastolic dysfunction. No regional wall motion abnormalities noted. Right Ventricle Normal RV size. Normal systolic function. Atria The left atrium is moderately enlarged. The right atrium is mildly enlarged. No doppler evidence for ASD. Mitral Valve There is moderate to severe mitral annular calcification. Extension of the mitral annular calcification onto the base of the posterior mitral valve leaflet. Mild-Moderate (1-2+) mitral valve insufficiency. Tricuspid Valve Normal tricuspid valve. Moderate (2+) tricuspid valve insufficiency. Right ventricular systolic pressure estimated to be 56 mmHg. Aortic Valve Trisinus/trileaflet aortic valve. Mild focal aortic valve calcification. Pulmonic Valve The pulmonic valve is not well visualized. Trivial pulmonic valve insufficiency. Great Vessels Normal sized aortic root. Pericardium/Pleural No pericardial effusion. MMode/2D Measurements & Calculations LVIDd: 3.4 cm IVSd: 1.0 cm Ao root diam: 3.1 cm LVIDs: 2.3 cm LVPWd: 0.91 cm RVDd: 4.8 cm FS: 32.7 % LAV(MOD-bp): 50.1 ml LA A4 area: 20.7 cm2 LA dimension(2D): 4.9 cm LAV(MOD-bp) Indexed: 25.6 ml/m2 LAV(MOD-sp2): 38.0 ml LAV(MOD-sp4): 59.7 ml RA A4 area: 21.9 cm2 Doppler Measurements & Calculations MV E max olivia: 103.3 cm/sec Ao V2 max: 101.6 cm/sec LV V1 max: 62.4 cm/sec Ao max P.1 mmHg LV V1 max P.6 mmHg Ao V2 mean: 74.3 cm/sec Ao mean P.4 mmHg Ao V2 VTI: 20.1 cm PA V2 max: 67.1 cm/sec PI end-d olivia: 170.1 cm/sec TR max olivia: 365.5 cm/sec TR max P.4 mmHg Interpretation Summary The study was technically difficult. Left ventricular systolic function is normal. The estimated ejection fraction is 55 %. The left atrium is moderately enlarged. The right atrium is mildly enlarged. There is moderate to severe mitral annular calcification. Extension of the mitral annular calcification onto the base of the posterior mitral valve leaflet. Mild-Moderate (1-2+) mitral valve insufficiency. Moderate (2+) tricuspid valve insufficiency. Mild focal aortic valve calcification. Trivial pulmonic valve insufficiency. Right ventricular systolic pressure estimated to be 56 mmHg. Unable to assess diastolic dysfunction. Ordering Physician: Maxwell Garcia Referring Physician: Ayden Watts Performed By: Mary Lara, RDCS, RVT
== END ==
PROVIDERS: PCP Family Medicine; Referring Provider Internal Medicine Cardiovascular Disease; Visit Provider Internal Medicine Cardiovascular Disease
DX: I48.91 Unspecified atrial fibrillation (principal); I48.92 Unspecified atrial flutter; I25.10 Atherosclerotic heart disease of native coronary artery without angina pectoris; I10 Essential (primary) hypertension; E78.00 Pure hypercholesterolemia, unspecified; R60.0 Localized edema; Z79.01 Long term (current) use of anticoagulants
CPT/HCPCS: 36415; 85610; 93306

== ENCOUNTER 2020-03-31 08:49 | Outpatient (RCR) | payer MEDICARE, SELFPAY ==
[2020-02-24 14:35] VITALS: BMI 38.6
[2020-03-14 10:18] LABS: International Normalized Ratio 2.1; Prothrombin Time (Protime)PT. 22.9 SECONDS (11.7-14.9)
[2020-03-14 10:36] LABS: Anion Gap 6 (5-15); BUN 30 mg/dL (7-18); BUN/Creat Ratio 23.8 RATIO (10-20); Calcium,Total 9.4 mg/dL (8.5-10.1); Chloride 107 mmol/L (98-107); Creatinine, Serum 1.26 mg/dL (0.55-1.02); EST Glomerular Filtration Rate 43 mL/min (>60); Est Glom Filt Rate - Afr Amer 53 mL/min (>60); Glucose 132 mg/dL (74-106); Sodium Level 142 mmol/L (136-145)
[2020-03-31 10:33] LABS: International Normalized Ratio 2.6; Prothrombin Time (Protime)PT. 27.2 SECONDS (11.7-14.9)
== END 2020-03-31 18:00 | disposition home or self-care (01) ==
LOC: LAB 08:49
PROVIDERS: Family Provider Family Medicine; PCP Family Medicine; Referring Provider Internal Medicine Cardiovascular Disease; Visit Provider Internal Medicine Cardiovascular Disease
DX: I48.91 Unspecified atrial fibrillation (principal); I48.92 Unspecified atrial flutter; Z79.01 Long term (current) use of anticoagulants
CPT/HCPCS: 36415; 80048; 85610

== ENCOUNTER 2020-04-28 10:07 | Outpatient (RCR) | payer MEDICARE, SELFPAY ==
[2020-02-24 14:35] VITALS: BMI 38.6
[2020-04-28 11:06] LABS: International Normalized Ratio 2.4; Prothrombin Time (Protime)PT. 25.9 SECONDS (11.7-14.9)
[2020-04-28 11:33] LABS: Anion Gap 4 (5-15); BUN 24 mg/dL (7-18); Calcium,Total 8.9 mg/dL (8.5-10.1); Chloride 105 mmol/L (98-107); EST Glomerular Filtration Rate 46 mL/min (>60); Est Glom Filt Rate - Afr Amer 56 mL/min (>60); Glucose 155 mg/dL (74-106); Sodium Level 139 mmol/L (136-145)
== END 2020-04-28 18:00 | disposition home or self-care (01) ==
LOC: LAB 10:07
PROVIDERS: Family Provider Family Medicine; PCP Family Medicine; Referring Provider Internal Medicine Cardiovascular Disease; Visit Provider Internal Medicine Cardiovascular Disease
DX: I48.91 Unspecified atrial fibrillation (principal); I48.92 Unspecified atrial flutter; Z79.01 Long term (current) use of anticoagulants
CPT/HCPCS: 36415; 80048; 85610

== ENCOUNTER 2020-05-26 09:00 | Outpatient (RCR) | payer MEDICARE, SELFPAY ==
[2020-05-25 08:57] VITALS: BMI 38.5
[2020-05-26 09:53] LABS: International Normalized Ratio 2.8; Prothrombin Time (Protime)PT. 29.2 SECONDS (11.7-14.9)
== END 2020-05-26 18:00 | disposition home or self-care (01) ==
LOC: LAB 09:00
PROVIDERS: Family Provider Family Medicine; PCP Family Medicine; Referring Provider Internal Medicine Cardiovascular Disease; Visit Provider Internal Medicine Cardiovascular Disease
DX: I48.91 Unspecified atrial fibrillation (principal); I48.92 Unspecified atrial flutter; Z79.01 Long term (current) use of anticoagulants
CPT/HCPCS: 36415; 85610

== ENCOUNTER 2020-07-07 08:52 | Outpatient (RCR) | payer MEDICARE, SELFPAY ==
[2020-05-25 08:57] VITALS: BMI 38.5
[2020-06-30 10:17] LABS: International Normalized Ratio 3.4; Prothrombin Time (Protime)PT. 33.9 SECONDS (11.7-14.9)
[2020-07-07 10:28] LABS: International Normalized Ratio 2.3; Prothrombin Time (Protime)PT. 24.8 SECONDS (11.7-14.9)
== END 2020-07-07 18:00 | disposition home or self-care (01) ==
LOC: LAB 08:52
PROVIDERS: Family Provider Family Medicine; PCP Family Medicine; Referring Provider Internal Medicine Cardiovascular Disease; Visit Provider Internal Medicine Cardiovascular Disease
DX: I48.91 Unspecified atrial fibrillation (principal); I48.92 Unspecified atrial flutter; Z79.01 Long term (current) use of anticoagulants
CPT/HCPCS: 36415; 85610

== ENCOUNTER 2020-07-29 08:31 | Outpatient (RCR) | payer MEDICARE, SELFPAY ==
[2020-05-25 08:57] VITALS: BMI 38.5
[2020-07-29 09:39] LABS: International Normalized Ratio 1.9
[2020-07-29 10:18] LABS: AST(SGOT) 17 U/L (15-37); Alanine Aminotransfer ALT/SGPT 23 U/L (13-56); Albumin, Serum 3.5 g/dL (3.2-5.0); Alkaline Phosphatase 128 U/L (45-117); Bilirubin, Direct 0.12 mg/dL (0.00-0.30); Cholesterol 221 mg/dL (200); Globulin 3.6 g/dL (2.2-4.2); High Density Lipoprotein 41 mg/dL; Protein, Total 7.1 g/dL (6.4-8.2); Triglycerides 319 mg/dL; Very Low Density Lipoprotein 64 mg/dL (5-40)
== END 2020-07-29 18:00 | disposition home or self-care (01) ==
LOC: LAB 08:31
PROVIDERS: Family Provider Family Medicine; PCP Family Medicine; Referring Provider Internal Medicine Cardiovascular Disease; Visit Provider Internal Medicine Cardiovascular Disease
DX: I48.91 Unspecified atrial fibrillation (principal); I48.92 Unspecified atrial flutter; Z79.01 Long term (current) use of anticoagulants; E78.00 Pure hypercholesterolemia, unspecified
CPT/HCPCS: 36415; 80061; 80076; 85610

== ENCOUNTER 2020-08-26 08:40 | Outpatient (RCR) | payer MEDICARE, SELFPAY ==
[2020-05-25 08:57] VITALS: BMI 38.5
[2020-08-11 10:48] LABS: International Normalized Ratio 1.8; Prothrombin Time (Protime)PT. 20.1 SECONDS (11.7-14.9)
[2020-08-26 10:08] LABS: International Normalized Ratio 2.1; Prothrombin Time (Protime)PT. 23.1 SECONDS (11.7-14.9)
== END 2020-08-26 18:00 | disposition home or self-care (01) ==
LOC: LAB 08:40
PROVIDERS: Family Provider Family Medicine; PCP Family Medicine; Referring Provider Internal Medicine Cardiovascular Disease; Visit Provider Internal Medicine Cardiovascular Disease
DX: Z79.01 Long term (current) use of anticoagulants (principal); I48.91 Unspecified atrial fibrillation; I48.92 Unspecified atrial flutter
CPT/HCPCS: 36415; 85610

== ENCOUNTER 2020-09-08 08:42 | Outpatient (RCR) | payer MEDICARE, SELFPAY ==
[2020-08-22 11:11] VITALS: BMI 37.5
[2020-09-08 09:46] LABS: International Normalized Ratio 2.1; Prothrombin Time (Protime)PT. 22.4 SECONDS (11.7-14.9)
[2020-09-08 10:12] LABS: AST(SGOT) 14 U/L (15-37); Alanine Aminotransfer ALT/SGPT 22 U/L (13-56); Albumin, Serum 3.4 g/dL (3.2-5.0); Alkaline Phosphatase 131 U/L (45-117); Bilirubin, Direct 0.13 mg/dL (0.00-0.30); Cholesterol 319 mg/dL (200); Globulin 3.7 g/dL (2.2-4.2); High Density Lipoprotein 41 mg/dL; Protein, Total 7.1 g/dL (6.4-8.2); Triglycerides 450 mg/dL
== END 2020-09-08 18:00 | disposition home or self-care (01) ==
LOC: LAB 08:42
PROVIDERS: Family Provider Family Medicine; PCP Family Medicine; Referring Provider Internal Medicine Cardiovascular Disease; Visit Provider Internal Medicine Cardiovascular Disease
DX: I48.91 Unspecified atrial fibrillation (principal); I48.92 Unspecified atrial flutter; E78.00 Pure hypercholesterolemia, unspecified; Z79.01 Long term (current) use of anticoagulants
CPT/HCPCS: 36415; 80061; 80076; 85610

== ENCOUNTER → 2020-09-15 10:37 | Outpatient (CLI) | payer MEDICARE, SELFPAY ==
[2020-09-15 09:32] VITALS: BMI 37.8
[2020-09-15 10:40] LABS: Bacteria 0 SEEN /hpf (None Seen); Mucous, Urine 0 SEEN /hpf (<or=2+); Red Blood Cells-Urine 0 SEEN /hpf (0-5); Squamous Epithelial Cells - UA 0 SEEN /hpf (5-10)
[2020-09-15 12:14] LABS: Color, Urine Yellow (Yellow); Glucose, Dipstick 1000 mg/dl (Normal); Ketone-Dipstick Negative (Negative); Leukocyte Esterase-Dipstick 25 /ul (Negative); Nitrite-Dipstick Negative (Negative); Occult Blood-Urine Negative /ul (Negative); Protein-Dipstick Negative (Negative); Urine Bilirubin Dipstick Negative (Negative); Urine Clarity Clear (Clear); Urine Urobilinogen Normal (Normal); Urine pH 6.5 (5.0 - 8.0)
[2020-09-15 12:24] LABS: White Blood Cells 0-5 SEEN /hpf (0-5)
== END ==
PROVIDERS: PCP Family Medicine; Referring Provider Physician Assistant; Visit Provider Physician Assistant
DX: R10.9 Unspecified abdominal pain (principal)
CPT/HCPCS: 81001; 87086; 87088

== ENCOUNTER 2020-11-29 07:10 | Day surgery (SDC) | payer MEDICARE, SELFPAY ==
[2020-10-14 14:55] VITALS: BMI 38.1
[2020-11-18 10:13] VITALS: BMI 37.8
[2020-11-29] VITALS (7 sets, daily range): BP systolic 102–132; BP diastolic 60–87; PULSE 69–87; RESP 16; TEMP 36.1–36.7; O2SAT 97–99; BMI 38.0
--- NOTE | 2020-11-29 | IMM_PTH ---
PATIENT: BRYAN TESFAYE LOC: [facility] – [place] U#:[id number] AGE/SX: 80/F ROOM: RE11/29/[address]: Dr. Julianna Sheets MD : 1940 BED: DIS: 11/29/2020 SPEC #: [id number] RECD: 11/30/20 13:22 STATUS: KIKA REQ #: [id number] AIDEE: 11/29/20 00:[address]: Julianna Sheets DEPT: IMMUNOHISTOCHEMISTRY RECD BY: Mary Caban ENTERED: 11/30/20 13:23 SP TYPE: IMMUNO OTHR DR: Dr. Ayden Watts, DO Tissues: Skin of vulva Procedures: p16 (initial) KI-67 (add) PHYSICIAN & INSTITUTION [place] [id number] SPECIMEN INFORMATION: Tissue Source: Vulvar lesion Clinical Info: Vulvar lesion Specimen Number: [id number] CPT code: 46082, 44034 METHODOLOGY: Deparaffinized sections of prefer/formalin-fixed tissue or PAP/DQ stained slides are incubated with monoclonal/polyclonal antibodies/oligonucleotide probes. Localization is made via biotin free immunoperoxidase method. Appropriate controls are performed and reacted as expected. Results on target cell population are indicated in the following table: RESULTS: ANTIBODY / CLONE RESULT P16 (E6H4) positive, patchy Ki-67 (30-9) positive, low These tests were developed and their performance characteristics determined by [facility]. They may not have been cleared or approved by the U.S. Food and Drug Administration. The FDA has determined that such clearance or approval is not necessary. The above immunohistochemical/dualISH markers are ordered and reviewed by the Pathologist. INTERPRETATION: Vulvar lesion, biopsy: Consistent with condyloma. AM:ana 12/01/2020 Case has been reviewed in consultation with Dr. Jackman who concurs with the above diagnosis. IDC:OLEGARIO
--- NOTE | 2020-11-29 07:18 | PCM.HP.OB ---
HPI - General HPI Narrative BRYAN TESFAYE, is a 80 F who presents for wide local excision of vulvar lesion. 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 Pure hypercholesterolemia Rheumatoid arthritis Type 2 diabetes mellitus Wears dentures Wears glasses Home Medications multivitamin 1 ea PO DAILY 03/29/15 [History Last Taken 06/30/15] calcium carbonate 600 mg calcium (1,500 mg) tablet 600 mg PO ONCE tab 10/09/17 [History Last Taken Unknown] insulin syringe-needle U-100 0.5 mL 31 gauge x 10/23 #100 ea 01/12/20 [Rx Last Taken Unknown] blood sugar diagnostic #50 ea 05/25/20 [Rx Last Taken Unknown] losartan 50 mg tablet 50 mg PO BID #180 tab 06/16/20 [Rx Last Taken Unknown] omeprazole 40 mg capsule,delayed release 40 mg PO QDAY #90 cap 07/18/20 [Rx Last Taken Unknown] metoprolol tartrate 100 mg tablet 100 mg PO BID #180 tab 08/05/20 [Rx Last Taken Unknown] furosemide 20 mg tablet 40 mg PO DAILY #90 tab 08/16/20 [Rx Last Taken Unknown] aspirin 325 mg tablet 325 mg PO DAILY 09/15/20 [History Last Taken 11/22/20] metformin 500 mg tablet,extended release 24 hr 500 mg PO BID #60 tab 10/10/20 [Rx Last Taken Unknown] atorvastatin 20 mg PO DAILY 11/23/20 [History Last Taken Unknown] dapagliflozin [Farxiga] 10 mg PO QHS 11/23/20 [History Last Taken Unknown] insulin glargine [Lantus U-100 Insulin] 40 unit SC QHS 11/23/20 [History Last Taken Unknown] Allergy/AdvReac Type Severity Reaction Status Date / Time atorvastatin AdvReac Severe myalgias Verified 11/23/20 15:17 Family History Father Myocardial infarction Heart disease Mother Breast cancer Cancer bowl Diabetes Son Diabetes Surgical History History of hysterectomy Social History household members: children number of children: 3 current occupational status: retired history of recent travel: No Smoking Status: Never smoker alcohol intake: never substance use type: does not use caffeine: Yes Type: coffee Number of servings: 3 what type of physical activity do you participate in: other details: BView seatbelt use: always do you feel safe at home: Yes additional social history: History 2 Elective abortions Hx Para 3 Spontaneous abortions Hx # Term Pregnancies Ectopic pregnancies Hx # Pregnancies Multiple births # of living children 3 Past Pregnancies Del. Date Name GA/Weeks Outcome Route Bth Weight Gen Labor Lgth Anesthesia Del Locatn Provider FOB Unknown Jone Unknown Arcadio Unknown Abraham ROS Eyes Eyes: Reports systems reviewed and no addt'l complaints, except as documented ENT HEENT: Reports systems reviewed and no addt'l complaints, except as documented Cardiovascular Cardiovascular: Reports systems reviewed and no addt'l complaints, except as documented Respiratory/Chest Respiratory/Chest: Reports systems reviewed and no addt'l complaints, except as documented Gastrointestinal Gastrointestinal: Reports systems reviewed and no addt'l complaints, except as documented Genitourinary Genitourinary: Reports systems reviewed and no addt'l complaints, except as documented Musculoskeletal Musculoskeletal: Reports systems reviewed and no addt'l complaints, except as documented Integumentary Integumentary: Reports systems reviewed and no addt'l complaints, except as documented Neurologic Neurologic: Reports systems reviewed and no addt'l complaints, except as documented Psychiatric Psychiatric: Reports systems reviewed and no addt'l complaints, except as documented Endocrine Endocrinology: Reports systems reviewed and no addt'l complaints, except as documented Hematologic/Lymphatic Hematologic/Lymphatic: Reports systems reviewed and no addt'l complaints, except as documented Allergic/Immunologic Allergic/Immunologic: Reports systems reviewed and no addt'l complaints, except as documented Vital Signs Vital Signs Vital Signs: Weight Body Mass Index (BMI) 37.8 Physical Exam Const alert, oriented x3, no apparent distress, average body habitus, healthy appearing and well nourished HEENT normocephalic and moist oral mucous membranes Head and Scalp: atraumatic Eyes PERRL and EOMs intact bilaterally Neck full ROM Resp normal respiratory effort, no retractions and no use of accessory muscles Cardio regular rate and regular rhythm GI soft to palpation, non-tender and non-distended Extremity normal to inspection and full ROM Skin no rashes or lesions noted Neuro no focal motor deficits and no sensory deficits noted Psych mental status grossly normal, affect normal, speech normal and activity/motor behavior normal Labs Labs Labs: Hct 34.7 % (37-47) L Hgb 11.6 g/dl (12.0-15.0) L Assessment & Plan (1) Lesion of vulva: PLAN: Patient with large condylomatous lesion of vulva Previously offered in office excision vs. excision under anesthesia. Due to size of lesion decided on proceeding in operating room Planned procedure is wide local excision of vulvar lesion with possible CO2 laser Medical history reviewed with patient All questions were answered to the best of my ability Consent signed in office
[2020-11-29 08:14] LABS: Hematocrit 44.2 % (37-47); Hemoglobin 14.2 g/dL (12.0-15.0); Mean Corp Hgb Conc 32.1 g/dL (32-36); Mean Corpuscular Hgb 31.1 pg (27.0-32.0); Mean Corpuscular Volume 96.7 fL (81-99); Mean Platelet Vol. 9.6 fl (6.2-12.0); Platelet Count 258 K/mm3 (150-450); RBC Distribution Width CV 14.7 % (11.6-14.6); RBC Distribution Width SD 52.3 fl (35.1-43.9); Red Blood Count 4.57 M/mm3 (4.2-5.4); White Blood Count 5.3 K/mm3 (4.4-11.0)
--- NOTE | 2020-11-29 08:27 | PCM.DC ---
Discharge Instructions Diet Discharge Diet: No restrictions Activity Discharge Activity: May Not Drive (While on narcotic pain medication) and May Shower May resume sexual activity in: 1-2 weeks Dressing / Incision Call your doctor if your incision/area has: Continuous Slow Oozing, Sudden Increased Bleeding, Increased Pain/ Swelling, Increased Redness, Foul Smelling Discharge and Swelling at the incision site Call your doctor if you observe: Fever of 101 or Higher, Inability to urinate, Using more than 1 pad per hour, Shortness of breath, Dizziness, Fainting spells, Chest pain and Uncontrolled pain Cleanse incision/area with: Soap & Water and Keep Dressing Clean & Dry Additional Dressing/Incision Instructions:: Apply bacitracin to incision as needed for 1 week Follow Up Care Please Follow Up With: Julianna Sheets MD When: 2 weeks Test Results: Test results from this visit will be discussed in further detail at your follow-up appointment, if applicable. Discharge Plan Admission Primary Reason for Your Visit: Vulvar lesion Attending Provider: Julianna Sheets Primary Care Provider: Ayden Watts Discharge Orders/Prescriptions Prescriptions: New oxycodone 5 mg capsule 5 mg PO Q6H PRN (Reason: pain) 3 Days Qty: 7 RF: 0 Continued calcium carbonate [Calcium 600] 600 mg calcium (1,500 mg) tablet 600 mg PO ONCE RF: 0 (DME) Blood Glucose Test Strip See Rx Instructions .ROUTE .MEDSUPPLY Qty: 50 RF: 3 aspirin 325 mg tablet 325 mg PO DAILY RF: 0 multivitamin 1 EACH tablet 1 ea PO DAILY RF: 0 atorvastatin 20 mg tablet 20 mg PO DAILY RF: 0 Lantus U-100 Insulin 100 unit/mL solution 40 unit SC QHS RF: 0 Farxiga 10 mg tablet 10 mg PO QHS RF: 0 (DME) insulin syringe-needle U-100 [BD Insulin Syringe Ultra-Fine] 0.5 mL 31 gauge x 5/16 syringe See Dose Instructions .ROUTE .MEDSUPPLY Qty: 100 RF: 3 losartan 50 mg tablet 50 mg PO BID Qty: 180 RF: 1 omeprazole 40 mg capsule,delayed release(DR/EC) 40 mg PO QDAY Qty: 90 RF: 1 metoprolol tartrate 100 mg tablet 100 mg PO BID Qty: 180 RF: 3 furosemide 20 mg tablet 40 mg PO DAILY Qty: 90 RF: 2 metformin 500 mg tablet extended release 24 hr 500 mg PO BID Qty: 60 RF: 0 Referrals / Follow Up: Ayden Watts DO [Primary Care Provider] - Disposition Disposition (needs filled in before D/C Order can be placed): Home, Self Care
[2020-11-29 08:39] LABS: Bedside Glucose 193 mg/dL (70-110)
[2020-11-29] MEDS: Bupiv/Epi 0.25% 30 ML Vial (08:44)
--- NOTE | 2020-11-29 09:00 | VUL_PTH ---
PATIENT: BRYAN TESFAYE LOC: [facility] [place] U#:[id number] AGE/SX: 80/F ROOM: RE11/29/[address]: Dr. Julianna Sheets MD : 1940 BED: DIS: 11/29/2020 SPEC #: [id number] RECD: 11/29/20 11:03 STATUS: KIKA CHELA #: [id number] AIDEE: 11/29/20 09:[address]: Julianna Sheets DEPT: SURGICAL PATHOLOGY RECD BY: Kirstin Diez ENTERED: 11/29/20 11:34 SP TYPE: VULVA BX OTHR DR: Dr. Ayden Watts, DO Tissues: Vulva, NOS Procedures: Surgery Specimen Level IV HEADER OPERATION: Wide local excision of vulvar lesion PRE-OP DIAGNOSIS: Lesion of vulva TISSUE SUBMITTED: Vulvar lesion MICROSCOPIC DIAGNOSIS Vulvar lesion, biopsy: Consistent with condyloma acuminatum. AM:ana 11/30/2020 COMMENT Case has been reviewed in consultation with Dr. Jackman who concurs with the above diagnosis. IDC:SJ MICROSCOPIC DESCRIPTION Slides are reviewed. GROSS DESCRIPTION Received in fixative is one container labeled with the patient's name and designated vulvar lesion. The specimen consists of a piece of partially disrupted barber-white skin measuring 1.5 x 0.5 x 0.3 cm. This piece is inked and serially sectioned. Also present in the container is a small piece of barber-white skin measuring 0.2 x 0.2 x 0.1 cm. The entire specimen is submitted in one cassette. / OLEGARIO:ana 11/29/20 TC:5 CPT: 14965
--- NOTE | 2020-11-29 09:22 | PCM.OPRPT ---
Problems Associated Problem List Diagnoses (1) Lesion of vulva: Report of Operation Date of Procedure: 11/29/20 Pre-Operative Diagnosis: Vulvar lesion Post-Operative Diagnosis: Same Surgery/Procedure Performed:: Excision of vulvar lesion Description of Surgical Findings:: Condylomatous lesion immediately superior to the clitoral walker measuring approximately 1 cm in size leather goods sales representative: Melanie Vallejo Type of Anesthesia: MAC Special Medications: 1% lidocaine with epinephrine, bacitracin Specimen's removed: Vulvar lesion Estimated Blood Loss (mL): 10 Description of Procedure: The patient was taken to the operating room where anesthesia was obtained without difficulty. She was prepped and draped in the dorsolithotomy position with yellowfin stirrups. The vulvar lesion was identified immediately superior to the clitoral walker. The area was instilled with 3 cc of 1% lidocaine with epinephrine. An incision was made completely around the lesion with the scalpel and the area was fully removed. Deep stitches of 3-0 Vicryl were used to reapproximate the subcutaneous space. 3-0 Monocryl was then used in a simple interrupted fashion to reapproximate the skin. Excellent hemostasis was noted. Bacitracin was applied over the incision. The procedure was deemed complete. The patient was awakened from anesthesia and taken to recovery room in stable condition. Complications None apparent Admit VTE Documentation VTE Present on Admission: No VTE Mechan Device Prophylaxis: SCD's VTE Pharm Prophylaxis ordered?: No Procedures Urinary/Genital [id number]: 31926 Partial removal of vulva (Excision of vulvar lesion)
== END 2020-11-29 10:26 | disposition home or self-care (01) ==
LOC: SDC 07:12 → AC 07:13
PROVIDERS: PCP Family Medicine; Referring Provider Obstetrics & Gynecology; Visit Provider Obstetrics & Gynecology
PROC: (CPT 11421; principal; 2020-11-29 08:45)
DX: A63.0 Anogenital (venereal) warts (principal); I25.10 Atherosclerotic heart disease of native coronary artery without angina pectoris; I48.91 Unspecified atrial fibrillation; I11.0 Hypertensive heart disease with heart failure; I50.9 Heart failure, unspecified; E11.9 Type 2 diabetes mellitus without complications; M06.9 Rheumatoid arthritis, unspecified; E78.5 Hyperlipidemia, unspecified; K21.9 Gastro-esophageal reflux disease without esophagitis; Z79.01 Long term (current) use of anticoagulants; Z79.4 Long term (current) use of insulin; Z79.82 Long term (current) use of aspirin; Z90.710 Acquired absence of both cervix and uterus
CPT/HCPCS: 11421; 12041; 82962; 85027; 86850; 86900; 86901; 88305; 88341; 88342; J7120

== ENCOUNTER → 2021-02-14 09:04 | Outpatient (CLI) | payer MEDICARE, SELFPAY ==
[2021-02-14 12:56] LABS: Hemoglobin A1c 8.2 % (3.8-5.6)
== END ==
PROVIDERS: PCP Family Medicine; Referring Provider Family Medicine; Visit Provider Family Medicine
DX: E11.9 Type 2 diabetes mellitus without complications (principal)
CPT/HCPCS: 36415; 83036

== ENCOUNTER 2021-07-10 08:45 | Outpatient (CLI) | payer MEDICARE, SELFPAY ==
--- NOTE | 2021-07-10 08:51 | RAD_ITS ---
STUDY: X-RAY - RIGHT SHOULDER REASON FOR EXAM: Female, 80 years old. FALL, RIGHT SHOULDER PAIN TECHNIQUE: 4 view(s) of the shoulder. COMPARISON: None. FINDINGS: There is mild degenerative arthrosis of the glenohumeral articulation. There is degenerative spur formation along the inferior aspect of the acromion. This may cause impingement. Normal humeral head and visualized proximal humerus. The soft tissue structures are unremarkable. Normal visualized pulmonary apex. RAD/Shoulder min 2 Views IMPRESSION: Degenerative changes. Findings suggestive of impingement due to degenerative spur formation along the undersurface of the acromion. Electronically Signed: Kavon Clay MD at 9:10 EST ,
== END 2021-07-10 23:59 | disposition short-term general hospital (02) ==
LOC: RAD 08:49
PROVIDERS: PCP Family Medicine; Referring Provider Nurse Practitioner Family; Visit Provider Nurse Practitioner Family
DX: M25.511 Pain in right shoulder (principal)
CPT/HCPCS: 73030

== ENCOUNTER 2021-08-07 09:00 | Outpatient (RCR) | payer MEDICARE, SELFPAY ==
--- NOTE | 2021-07-21 10:44 | HP.PTEVAL_ITS ---
Patient's Visit Information BRYAN TESFAYE is a 80 year old F referred to Physical Therapy by Dr. Jake Kurtz DO with a diagnosis of R shoulder shoulder impingement , trap sapsms. Date of Evaluation: 07/21/21 Physical Therapist: Tyler Richards, DPT, OCS, CSCS - Visit Plan Frequency: 3x /Week Duration: 2-4 Weeks Plan: 3x/week for 3-4 weeks. Please do MH and STM to posterior R shoulder. AROM/PROM to R shoulder and add IR to HEP. strength R Rc and posture to I. - Subjective Tripped on a board and fell and her R shoulder. That was in April and is her only fall. Balance feel Ok otherwise. Shoulder is painful in upper arm on R a nd scapula. It hurts if she is moving it writing bills or uses arm it casues pulling in R shoulder. Hurts a little bit at rest. is R handed. Uses L arm to do functional activities like poor coffee. Sleeping is Ok but it gets cold at night and feels better to lie on it. X ray was OK but has OA. Not employed. Spends day hanging out with dog and cleaning house. Lives with son since reva . Basic ADLs are getting done but does feel R shoulder pain with most of them. - Pain R shoulder Pain Intensity (Out of 10): 1 Pain Intensity Range: 0, 7 - Objective Posture is FW head and protracted scapula. Tender to touch in supraspinatus and deltoid on r and back into infraspinatus muscle belly. rhomboid and trap tenderness on r and not L. Cervical aROM is full and painfree and smmetrical. Scapular AROM is painful posterior on R but good motion. g-h AROM is full but end range pain with flexion, er, ir. Strength R shoulder IR, flexion 4/5, er painful and 4-, b and tri 4+ no pain. elbow and wrist AROM are B WFL without pain. reflexes 2/3 bi and tri. Sensation UE WNL to gross light touch. + HK and + neer slightly. - ext rotation lag tesst, - drop arm test, - instability test. all on R. - Balance/Special Test Scores Quick DASH Score: 40.9075 - Goals Goal 1:: Full aROM R shoulder without pain to help with healing and pain Goal Time Frame: 2-4 Weeks Goal 2:: Patient feel shoulder 90% improved and back able to vaccuum Goal Time Frame: 2-4 Weeks Goal 3:: quickdash 15 or less. Goal Time Frame: 2-4 Weeks - Rehabilitation Potential Physical Therapy Diagnosis: R shoulder pain limiting function and comfort. Rehabilitation Potential: Fair - Anticipated Interventions Patient/Client Instruction: Educate patient on: Condition, Plan of Care For the Purpose of:: To decrease pain, To increase ROM, To improve muscle performance and motor function, To increase tolerance to activity/condition/position Therapeutic Exercise to Include: Strength training, Passive ROM, Active ROM For the Purpose of:: To decrease pain, To increase ROM Manual Therapy Techniques to Include: Passive ROM, Soft tissue mobilization For the Purpose of:: To decrease pain, To increase ROM Thermo therapy (hot pack): Yes For the Purpose of:: To improve nutrient delivery to tissue Thank you for the opportunity to evaluate your patient. For Medicare and Medicare HMO plans, please review the plan of care and approve it. It will need to be FAXED BACK to us at [phone] for Medicare purposes. For Medicare only, by signing this I certify the plan of care. Please let me know if there are questions or concerns regarding this plan of care. Physician Signature: Date:
--- NOTE | 2021-09-21 17:33 | HP.PT.NRP ---
BRYAN TESFAYE was seen in my office for initial evaluation on 07/21/21. The following Plan of Care was established for this patient: Initial Frequency: 3x /Week Initial Duration: 2-4 Weeks Patient/Client Instruction: Educate patient on: Condition, Plan of Care For the Purpose of:: To decrease pain, To increase ROM, To improve muscle performance and motor function, To increase tolerance to activity/condition/position Therapeutic Exercise to Include: Strength training, Passive ROM, Active ROM For the Purpose of:: To decrease pain, To increase ROM Manual Therapy Techniques to Include: Passive ROM, Soft tissue mobilization For the Purpose of:: To decrease pain, To increase ROM Thermo therapy (hot pack): Yes For the Purpose of:: To improve nutrient delivery to tissue This patient was last seen in our office 08/07/21. Pertinent comments regarding their Physical therapy will appear below: Pt seen 6 visits of her POC and reported 100% improvement. She did not attend any further visits. At this point, it has been over 6 weeks and I will discontinue due to nonattendance. At this point I will be discontinuing this patient from physical therapy. I would be happy to see this patient again in the future if found appropriate by the physician. Thank you! Tyler Richards, DPT, OCS, CSCS Balance/Gait/Functional tests - Balance/Special Test Scores Quick DASH Score: 22.7252
== END 2021-08-07 19:00 | disposition home or self-care (01) ==
LOC: PT 09:00
PROVIDERS: PCP Family Medicine; Referring Provider Orthopaedic Surgery; Visit Provider Orthopaedic Surgery
DX: M25.811 Other specified joint disorders, right shoulder (principal); R25.2 Cramp and spasm
CPT/HCPCS: 97110; 97140; 97161

== ENCOUNTER 2021-08-16 10:25 | Outpatient (CLI) | payer MEDICARE, SELFPAY ==
[2021-08-16 12:48] LABS: AST(SGOT) 16 U/L (15-37); Alanine Aminotransfer ALT/SGPT 18 U/L (13-56); Albumin, Serum 3.4 g/dL (3.2-5.0); Alkaline Phosphatase 112 U/L (45-117); Anion Gap 6 (5-15); BUN 21 mg/dL (7-18); BUN/Creat Ratio 16.3 RATIO (10-20); Calcium,Total 9.5 mg/dL (8.5-10.1); Chloride 104 mmol/L (98-107); Cholesterol 282 mg/dL (200); Creatinine, Serum 1.29 mg/dL (0.55-1.02); EST Glomerular Filtration Rate 42 mL/min (>60); Est Glom Filt Rate - Afr Amer 51 mL/min (>60); Globulin 3.5 g/dL (2.2-4.2); Glucose 125 mg/dL (74-106); High Density Lipoprotein 40 mg/dL; Potassium 4.4 mmol/L (3.5-5.1); Protein, Total 6.9 g/dL (6.4-8.2); Sodium Level 140 mmol/L (136-145); Triglycerides 298 mg/dL; Very Low Density Lipoprotein 60 mg/dL (5-40)
== END 2021-08-16 23:59 | disposition home or self-care (01) ==
LOC: BIMLAB 10:26
PROVIDERS: PCP Family Medicine; Referring Provider Family Medicine; Visit Provider Family Medicine
DX: E11.9 Type 2 diabetes mellitus without complications (principal); I21.4 Non-ST elevation (NSTEMI) myocardial infarction
CPT/HCPCS: 36415; 80053; 80061; 82043; 82570

== ENCOUNTER → 2022-05-21 | Outpatient (CLI) | payer MEDICARE, SELFPAY | END | disposition home or self-care (01) | LOC: LABSPEC 10:13 | PROVIDERS: PCP Family Medicine; Referring Provider Physician Assistant; Visit Provider Physician Assistant | DX: U07.1 COVID-19 (principal); R05.9 Cough, unspecified | CPT/HCPCS: 87635; U0003; U0005 ==

== ENCOUNTER → 2022-09-25 | Outpatient (CLI) | payer MEDICARE, SELFPAY ==
[2022-09-25 13:33] LABS: ALB/GLOB Ratio 1.1 RATIO (0.9-2.4); AST(SGOT) 18 U/L (15-37); Alanine Aminotransfer ALT/SGPT 19 U/L (13-56); Albumin, Serum 3.4 g/dL (3.2-5.0); Alkaline Phosphatase 103 U/L (45-117); Anion Gap 3 (5-15); BUN 26 mg/dL (7-18); BUN/Creat Ratio 21.7 RATIO (10-20); Calcium,Total 9.7 mg/dL (8.5-10.1); Chloride 103 mmol/L (98-107); Cholesterol 275 mg/dL (200); EST Glomerular Filtration Rate 46 mL/min (>60); Est Glom Filt Rate - Afr Amer 55 mL/min (>60); Glucose 107 mg/dL (74-106); High Density Lipoprotein 40 mg/dL; Potassium 4.3 mmol/L (3.5-5.1); Protein, Total 6.4 g/dL (6.4-8.2); Sodium Level 136 mmol/L (136-145); Triglycerides 298 mg/dL; Very Low Density Lipoprotein 60 mg/dL (5-40)
[2022-09-25 13:34] LABS: Microalbumin,Random Urine < 5.0 mg/L (NO RANGE EST.)
== END | disposition home or self-care (01) ==
LOC: BIMLAB 09:54
PROVIDERS: PCP Family Medicine; Referring Provider Family Medicine; Visit Provider Family Medicine
DX: E11.9 Type 2 diabetes mellitus without complications (principal); I25.10 Atherosclerotic heart disease of native coronary artery without angina pectoris
CPT/HCPCS: 36415; 80053; 80061; 82043; 82570

== ENCOUNTER → 2023-04-23 | Outpatient (CLI) | payer MEDICARE, SELFPAY ==
[2023-04-23 14:32] LABS: Bacteria 0 SEEN /hpf (None Seen); Mucous, Urine 0 SEEN /hpf (<or=2+); Red Blood Cells-Urine 0 SEEN /hpf (0-5); Squamous Epithelial Cells - UA 0 SEEN /hpf (5-10); White Blood Cells 0 SEEN /hpf (0-5)
[2023-04-23 15:35] LABS: Color, Urine Yellow (Yellow); Glucose, Dipstick 1000 mg/dl (Normal); Ketone-Dipstick Negative (Negative); Leukocyte Esterase-Dipstick Negative /ul (Negative); Nitrite-Dipstick Negative (Negative); Occult Blood-Urine Negative /ul (Negative); Protein-Dipstick 30 mg/dl (Negative); Urine Bilirubin Dipstick Negative (Negative); Urine Clarity Clear (Clear); Urine Urobilinogen Normal (Normal)
== END | disposition home or self-care (01) ==
LOC: BIMLAB 14:20
PROVIDERS: PCP Family Medicine; Visit Provider Internal Medicine
DX: R31.9 Hematuria, unspecified (principal); R35.0 Frequency of micturition
CPT/HCPCS: 81001; 87086; 87088; 87186

== ENCOUNTER → 2023-04-24 | Outpatient (CLI) | payer MEDICARE, SELFPAY ==
[2023-04-24 12:36] LABS: Absolute Lymphocyte Count 2.21 X10^3/uL (0.83-4.51); Absolute Neutrophil Count 4.5 X10^3/uL (2.0-7.7); Basophil# 0.04 X10^3/uL; Basophil% 0.5 % (0-1); Eosinophil# 0.13 X10^3/uL; Eosinophils% 1.8 % (0-5); Hematocrit 42.3 % (37-47); Hemoglobin 13.1 g/dL (12.0-15.0); Lymphocyte # 2.21 X10^3/ul (0.83-4.51); Lymphocyte % 30.2 % (19-41); Mean Corpuscular Hgb 31.2 pg (27.0-32.0); Mean Corpuscular Volume 100.7 fL (81-99); Monocyte# 0.35 X10^3/uL; Monocyte% 4.8 % (0-10); NRBC Flagged by Analyzer 0 % (0-5); Neutrophil # 4.54 X10^3/uL (2.7-7.7); Platelet Count 265 K/mm3 (150-450); RBC Distribution Width SD 51.6 fl (35.1-43.9); White Blood Count 7.3 K/mm3 (4.4-11.0)
[2023-04-24 13:08] LABS: ALB/GLOB Ratio 1.1 RATIO (0.9-2.4); AST(SGOT) 25 U/L (15-37); Alanine Aminotransfer ALT/SGPT 29 U/L (13-56); Albumin, Serum 3.4 g/dL (3.2-5.0); Alkaline Phosphatase 91 U/L (45-117); Anion Gap 7 (5-15); BUN 19 mg/dL (7-18); BUN/Creat Ratio 17.1 RATIO (10-20); Calcium,Total 8.6 mg/dL (8.5-10.1); Chloride 106 mmol/L (98-107); Creatinine, Serum 1.11 mg/dL (0.55-1.02); EST Glomerular Filtration Rate 50 mL/min (>60); Est Glom Filt Rate - Afr Amer 60 mL/min (>60); Glucose 122 mg/dL (74-106); Protein, Total 6.4 g/dL (6.4-8.2); Sodium Level 139 mmol/L (136-145)
== END | disposition home or self-care (01) ==
LOC: BIMLAB 10:05
PROVIDERS: PCP Family Medicine; Referring Provider Internal Medicine; Visit Provider Internal Medicine
DX: R35.0 Frequency of micturition (principal)
CPT/HCPCS: 36415; 80053; 85025